=== PATIENT | male | born 1950 | race Caucasian/White ===

== ENCOUNTER 2017-12-19 10:18 | Day surgery (SDC) | payer OTHER ==
[~2017-12-19] VITALS: Ht 160 cm; Wt 61.2 kg
[~2017-12-19 10:18] MED LIST: ATEN50TA PO; BENA20TA14 PO; FOLI1TAB6 PO; LOVA20TA4 PO; METF-370 PO; MULTCHW OR; OMEG120015 PO; PANT40T PO
[2017-12-19] MEDS ORDERED: LIDOCAINE 2%HCL (LOCAL ANESTH.) INJ 10ml MDV ONE (13:11)
[2017-12-19] MEDS ORDERED: IOHEXOL 350 MG/ML 100ML IJ ONE (13:11)
[2017-12-19] MEDS ORDERED: SODIUM CHL 0.9% 0 ML ONE (13:22)
[2017-12-19] MEDS ORDERED: fentaNYL CITRATE 100 MCG/2 ML VL ONE (13:22)
[2017-12-19] MEDS ORDERED: ANGIOMAX 250 MG VIAL IV ONE (13:22)
[2017-12-19] MEDS ORDERED: MIDAZOLAM HCL 1MG/1ML-2 ML VIAL ONE (13:22)
[2017-12-19] MEDS ORDERED: VERAPAMIL 2.5MG/ML INJ 2ML VIAL IV ONE (13:25)
[2017-12-19] MEDS ORDERED: HEPARIN SODIUM (PORCINE) 5000 UNITS/ML 1ML VIAL ONE (13:42)
== END 2017-12-19 15:50 | disposition home or self-care (01) ==
LOC: CATH 10:18
PROVIDERS: ATTEND Internal Medicine
DX: I25.10 Atherosclerotic heart disease of native coronary artery without angina pectoris (principal); R94.39 Abnormal result of other cardiovascular function study; I10 Essential (primary) hypertension; E78.5 Hyperlipidemia, unspecified; F17.210 Nicotine dependence, cigarettes, uncomplicated; E11.9 Type 2 diabetes mellitus without complications; Z82.49 Family history of ischemic heart disease and other diseases of the circulatory system; Z79.899 Other long term (current) drug therapy; Z79.84 Long term (current) use of oral hypoglycemic drugs
CPT/HCPCS: 93458; 99152; A6257; C1769; C1894; J1644; J2001; J2250; J3010; J7030; Q9967; 93005